=== PATIENT | male | born 1990 | race Caucasian/White ===

== ENCOUNTER → 2019-01-29 | Outpatient (CLI) | payer OTHER ==
--- NOTE | 2019-01-29 16:06 | US ---
EXAMINATION TYPE: US scrotum with doppler. TECHNIQUE: Grayscale and color Doppler Duplex imaging performed of the scrotum. DATE OF EXAM: 01/29/2019 COMPARISON: NONE CLINICAL HISTORY: 28-year-old male N50.82 Scrotal pain. Left side pain during intercourse FINDINGS: EXAM MEASUREMENTS: TESTICLES: Right Testicle: 3.8 x 2.3 x 3.0 cm for a volume of 13.9 mL Left Testicle: 4.5 x 2.3 x 3.0 cm for a volume of 16.8 mL Both testicles show overall homogeneous appearance without hyperemia. Satisfactory arterial and venou s flow is present on both sides. EPIDIDYMIS HEAD: Right Epididymis: 1.0 cm Left Epididymis: 1.0 cm Presence of hydroceles: No Presence of varicoceles: Very small early varicoceles may be present on both sides. IMPRESSION: 1. No evidence for testicular torsion or epididymoorchitis. No hydrocele. 2. There may be small, very early developing varicoceles on both sides.
== END ==
LOC: RADUSWWP 14:51
PROVIDERS: ATTEND Internal Medicine
DX: N50.82 Scrotal pain (principal)
CPT/HCPCS: 76870; 93975